=== PATIENT | female | born 1960 | race Caucasian/White ===

== ENCOUNTER → 2017-07-26 | Outpatient (CLI) | payer MEDICAID ==
[~2017-07-26] MED LIST: ASPI-1005 PO; BENA40TA3 PO; CYAN10009 PO; DIGO250T84 PO; DIPH25CA85 PO; FLUO40CA7 PO; FOLI-74 PO; LEVO75TA10 PO; METF500T6 PO; SIMV10TA6 PO; TRAM50TA4 PO; TRAZ-144 PO
== END ==
LOC: SHCH 15:05
PROVIDERS: ATTEND Internal Medicine Cardiovascular Disease
DX: K21.9 Gastro-esophageal reflux disease without esophagitis (principal); I87.2 Venous insufficiency (chronic) (peripheral)
CPT/HCPCS: 93970

== ENCOUNTER 2017-08-20 15:23 | Emergency (ER) | payer MEDICAID ==
[~2017-08-20 15:23] MED LIST changes: -BENA40TA3 PO; +BENA40TA9 PO; -TRAZ-144 PO; +TRAZ-185 PO
== END 2017-08-20 15:50 | disposition home or self-care (01) ==
LOC: EDH 15:23
DX: H10.9 Unspecified conjunctivitis (principal); I10 Essential (primary) hypertension; E07.9 Disorder of thyroid, unspecified; Z88.8 Allergy status to other drugs, medicaments and biological substances

== ENCOUNTER 2019-06-28 10:35 | Inpatient (IN) | payer MEDICAID ==
[~2019-06-28] VITALS: Ht 172.7 cm; Wt 124.6 kg
[~2019-06-28 10:35] MED LIST changes: +CYAN-52 PO; -CYAN10009 PO; +DIGO250T73 PO; -DIGO250T84 PO; +METF-444 PO; -METF500T6 PO; -SIMV10TA6 PO; +SIMV10TA97 PO
[2019-06-28] MEDS ORDERED: SODIUM CHLORIDE 0.9% 1000ML 1,000 ML IV ONE ×3 (10:59→20:36)
[2019-06-28] MEDS ORDERED: ACETAMINOPHEN EXTRA STRENGTH 500 MG TABLET ONE (10:59)
[2019-06-28 11:20] LABS: APPEARANCE,URINE Clear (CLEAR); BASOPHILS % (AUTO) 0.3 % (0.0-5.0); BILIRUBIN,URINE Negative (NEGATIVE); COLOR,URINE Yellow (YELLOW); EOSINOPHILS % (AUTO) 0.1 % (0.0-8.0); GLUCOSE, URINE (UA) Negative (NEGATIVE); HEMATOCRIT 42.1 % (36-48); KETONES,URINE Trace mg/dL (NEGATIVE); LEUKOCYTE ESTERASE ,URINE Moderate (NEGATIVE); LYMPHOCYTES % (AUTO) 30.5 % (21.0-51.0); MEAN CORPUSCULAR HEMOGLOBIN 27.3 pg (27.0-33.0); MEAN CORPUSCULAR VOLUME 82.7 fL (79-99); MONOCYTES % (AUTO) 9.8 % (3.0-13.0); NITRATE,URINE Negative (NEGATIVE); OCCULT BLOOD,URINE Negative (NEGATIVE); PH,URINE 5.5 (5.0-8.0); PLATELET COUNT (AUTO) 205 K/uL (130-400); PROTEIN,URINE Negative (NEGATIVE); RED BLOOD CELL COUNT(AUTO) 5.09 MIL/uL (4.00-5.50); RED CELL DISTRIBUTION WIDTH 14.1 % (11.0-15.5); WHITE BLOOD COUNT (AUTO) 11.3 K/uL (4.8-10.8)
[2019-06-28 11:27] LABS: CREATININE 0.9 mg/dL (0.5-1.5); POTASSIUM 3.9 mmol/L (3.5-5.1)
[2019-06-28] MEDS ORDERED: METHYLPREDNISOLONE SOD SUCC 125MG/2ML VIAL ONE (11:28)
[2019-06-28 11:34] LABS: ALBUMIN 3.8 g/dL (3.5-5.0); BILIRUBIN,TOTAL 0.5 mg/dL (0.2-1.0); TOTAL PROTEIN, SERUM 7.6 g/dL (6.0-8.3)
[2019-06-28] MEDS ORDERED: IPRATROPIUM/ALBUTEROL SULFATE 3 ML SOLUTION IH ONE ×2 (11:47→13:51)
[2019-06-28 12:11] LABS: BACTERIA,URINE Rare /HPF (None Seen); RBC,URINE 0-1 /HPF (0-1); SQUAMOUS EPITHELIAL CELL,UR Few /HPF (0-2)
[2019-06-28] MEDS ORDERED: AZITHROMYCIN 500MG+NS 250ML 250 ML IV ONE (15:17)
[2019-06-28] MEDS ORDERED: CEFTRIAXONE SODIUM 1 GM ONE (15:17)
[2019-06-28] MEDS ORDERED: ACETAMINOPHEN 325 MG TAB PO PRN ×2 (16:30→16:45)
[2019-06-28] MEDS ORDERED: ONDANSETRON HCL 4 MG/2 ML VIAL IV PRN (16:45)
[2019-06-28] MEDS ORDERED: NITROGLYCERIN 0.4 MG SL TAB SL PRN (16:45)
[2019-06-28] MEDS ORDERED: LACTULOSE 20 GM/30 ML UDCUP PO PRN (16:45)
[2019-06-28] MEDS ORDERED: METHYLPREDNISOLONE SOD SUCC 125MG/2ML VIAL IVP SCH ×2 (17:45→19:00)
[2019-06-28] MEDS: IPRATROPIUM/ALBUTEROL SULFATE 3 ML SOLUTION IH SCH ×2 (19:06→23:26)
[2019-06-28] MEDS: BUDESONIDE 0.5 MG/2 ML INH IH SCH (19:17)
[2019-06-28] MEDS ORDERED: FAMOTIDINE/PF 20 MG/2 ML VIAL IV ONE (20:35)
[2019-06-28] MEDS: FAMOTIDINE 20MG TAB 20 MG TAB PO SCH (21:00)
[2019-06-28 22:30] VITALS: BP 154/76
[2019-06-28] MEDS ORDERED: AMLO5TAB9 PO (22:52)
[2019-06-28] MEDS ORDERED: HYDR25TA PO (22:52)
[2019-06-28] MEDS ORDERED: MONT10TA26 PO (22:52)
[2019-06-28] MEDS ORDERED: ATOR40TA69 PO (22:52)
[2019-06-28] MEDS ORDERED: BUPR-47 PO (22:52)
[2019-06-28] MEDS ORDERED: CETI10TA57 PO (22:52)
[2019-06-28] MEDS ORDERED: FLUT16H NASAL (22:55)
[2019-06-28] MEDS: SODIUM CHLORIDE 0.9% 1000ML 1,000 ML IV SCH (22:55)
[2019-06-28] MEDS: GUAIFENESIN-DM 200/20 MG 10 ML PO SCH ×2 (22:55→23:23)
[2019-06-28] MEDS ORDERED: FLUT1DIS3 IH (22:55)
[2019-06-28] MEDS: AZITHROMYCIN 500MG+NS 250ML 250 ML IV SCH (22:55)
[2019-06-29] MEDS: IPRATROPIUM/ALBUTEROL SULFATE 3 ML SOLUTION IH SCH ×6 (01:55→21:29)
[2019-06-29 04:07] VITALS: BP 141/78
[2019-06-29] MEDS: GUAIFENESIN-DM 200/20 MG 10 ML PO SCH ×5 (04:19→20:11)
[2019-06-29 05:27] LABS: BASOPHILS % (AUTO) 0.1 % (0.0-5.0); EOSINOPHILS % (AUTO) 1.5 % (0.0-8.0); HEMATOCRIT 38.2 % (36-48); LYMPHOCYTES % (AUTO) 19.4 % (21.0-51.0); MEAN CORPUSCULAR HEMOGLOBIN 26.6 pg (27.0-33.0); MEAN CORPUSCULAR HGB CONC 31.9 g/dL (32.0-36.0); MEAN CORPUSCULAR VOLUME 83.4 fL (79-99); MONOCYTES % (AUTO) 8.2 % (3.0-13.0); NEUTROPHILS % (AUTO) 70.3 % (40.0-77.0); PLATELET COUNT (AUTO) 185 K/uL (130-400); RED BLOOD CELL COUNT(AUTO) 4.58 MIL/uL (4.00-5.50); RED CELL DISTRIBUTION WIDTH 14.4 % (11.0-15.5); WHITE BLOOD COUNT (AUTO) 10.1 K/uL (4.8-10.8)
[2019-06-29 05:46] LABS: ALBUMIN 3.2 g/dL (3.5-5.0); BILIRUBIN,TOTAL 0.2 mg/dL (0.2-1.0); CREATININE 0.9 mg/dL (0.5-1.5); POTASSIUM 4.7 mmol/L (3.5-5.1); TOTAL PROTEIN, SERUM 6.6 g/dL (6.0-8.3)
[2019-06-29] MEDS: BUDESONIDE 0.5 MG/2 ML INH IH SCH ×2 (06:52→17:35)
[2019-06-29 08:18] VITALS: BP 142/66
[2019-06-29] MEDS: METHYLPREDNISOLONE SOD SUCC 125MG/2ML VIAL IVP SCH (08:19)
[2019-06-29] MEDS: CEFTRIAXONE SODIUM 1 GM IV SCH (08:20)
[2019-06-29] MEDS: FAMOTIDINE 20MG TAB 20 MG TAB PO SCH ×2 (08:20→20:11)
[2019-06-29] MEDS: ENOXAPARIN SODIUM 40 MG/0.4 ML SYRINGE SQ SCH (08:20)
[2019-06-29] MEDS: SODIUM CHLORIDE 0.9% 1000ML 1,000 ML IV SCH (08:28)
[2019-06-29 10:44] VITALS: BP 143/70
[2019-06-29 15:51] VITALS: BP 157/88
[2019-06-29] MEDS: AZITHROMYCIN 500MG+NS 250ML 250 ML IV SCH (15:54)
--- NOTE | 2019-06-29 17:10 | NUR ---
INITIAL Patient lives with adult son, Lenny Bergman, [phone], disabled sister, and grandchildren. Emergency contact is granddaughter, Giovanna Villalobos, [phone]. No home services or DME. 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 Patient is able to complete ADL's independently and drives. PCP is Dr. Johnson at [facility]. Pharmacy is [facility] located in [place]. DCP is home.
[2019-06-29 20:00] VITALS: BP 150/72
[2019-06-30] VITALS (7 sets, daily range): BP systolic 138–161; BP diastolic 59–94
[2019-06-30] MEDS: IPRATROPIUM/ALBUTEROL SULFATE 3 ML SOLUTION IH SCH ×6 (01:11→21:40)
[2019-06-30] MEDS: GUAIFENESIN-DM 200/20 MG 10 ML PO SCH ×6 (03:56→20:42)
[2019-06-30 05:40] LABS: BASOPHILS % (AUTO) 0.1 % (0.0-5.0); HEMATOCRIT 36.2 % (36-48); LYMPHOCYTES % (AUTO) 16.8 % (21.0-51.0); MEAN CORPUSCULAR HEMOGLOBIN 26.7 pg (27.0-33.0); MEAN CORPUSCULAR VOLUME 83.2 fL (79-99); MONOCYTES % (AUTO) 6.9 % (3.0-13.0); NEUTROPHILS % (AUTO) 75.4 % (40.0-77.0); PLATELET COUNT (AUTO) 190 K/uL (130-400); RED BLOOD CELL COUNT(AUTO) 4.35 MIL/uL (4.00-5.50); RED CELL DISTRIBUTION WIDTH 14.2 % (11.0-15.5); WHITE BLOOD COUNT (AUTO) 12.1 K/uL (4.8-10.8)
[2019-06-30] MEDS: BUDESONIDE 0.5 MG/2 ML INH IH SCH ×2 (06:13→18:33)
[2019-06-30 06:19] LABS: ALBUMIN 3.1 g/dL (3.5-5.0); BILIRUBIN,TOTAL 0.3 mg/dL (0.2-1.0); CREATININE 0.7 mg/dL (0.5-1.5); POTASSIUM 4.1 mmol/L (3.5-5.1); TOTAL PROTEIN, SERUM 6.4 g/dL (6.0-8.3)
[2019-06-30] MEDS: METHYLPREDNISOLONE SOD SUCC 125MG/2ML VIAL IVP SCH ×3 (10:36→20:42)
[2019-06-30] MEDS: CEFTRIAXONE SODIUM 1 GM IV SCH (10:36)
[2019-06-30] MEDS: FAMOTIDINE 20MG TAB 20 MG TAB PO SCH ×2 (10:36→20:42)
[2019-06-30] MEDS: ENOXAPARIN SODIUM 40 MG/0.4 ML SYRINGE SQ SCH (10:38)
[2019-06-30] MEDS: AZITHROMYCIN 500MG+NS 250ML 250 ML IV SCH (15:02)
--- NOTE | 2019-06-30 18:17 | NUR ---
CM NOTE MEET PATIENT TODAY IN ROOM. SNF OFFERED TO PATIENT DUE TO HIGH DOSES OF STEROIDS AND NEED FOR IV ANTIBIOTICS. PATIENT NOT WILLING TO GO TO SNF DUE TO RESPONSIBLE FOR HER 6 KIDS AT HOME WELL A SPECIAL NEEDS SISTER. DR. STRINGER MADE AWARE OF PATIENTS DECISION.
[2019-06-30] MEDS: AMLODIPINE BESYLATE 5 MG TAB PO SCH (20:42)
[2019-06-30] MEDS: FLUTICASONE PROPIONATE 50MCG/SPRAY 16 GM BOTTLE EN SCH (20:43)
[2019-07-01] MEDS: GUAIFENESIN-DM 200/20 MG 10 ML PO SCH ×7 (01:21→23:55)
[2019-07-01] MEDS: IPRATROPIUM/ALBUTEROL SULFATE 3 ML SOLUTION IH SCH ×6 (01:24→22:11)
[2019-07-01 03:33] VITALS: BP 142/72
[2019-07-01 05:18] LABS: BILIRUBIN,TOTAL 0.3 mg/dL (0.2-1.0); CREATININE 0.9 mg/dL (0.5-1.5); MAGNESIUM 1.4 mg/dL (1.80-2.40); PHOSPHORUS 2.7 mg/dL (2.5-4.9); POTASSIUM 4.4 mmol/L (3.5-5.1); TOTAL PROTEIN, SERUM 6.3 g/dL (6.0-8.3)
[2019-07-01 05:19] LABS: BASOPHILS % (AUTO) 0.2 % (0.0-5.0); EOSINOPHILS % (AUTO) 0.1 % (0.0-8.0); HEMATOCRIT 37.4 % (36-48); LYMPHOCYTES % (AUTO) 16.7 % (21.0-51.0); MEAN CORPUSCULAR HEMOGLOBIN 27.1 pg (27.0-33.0); MEAN CORPUSCULAR HGB CONC 32.6 g/dL (32.0-36.0); MEAN CORPUSCULAR VOLUME 82.9 fL (79-99); MONOCYTES % (AUTO) 4.2 % (3.0-13.0); NEUTROPHILS % (AUTO) 77.1 % (40.0-77.0); PLATELET COUNT (AUTO) 178 K/uL (130-400); RED BLOOD CELL COUNT(AUTO) 4.51 MIL/uL (4.00-5.50); RED CELL DISTRIBUTION WIDTH 14.1 % (11.0-15.5); WHITE BLOOD COUNT (AUTO) 11.5 K/uL (4.8-10.8)
[2019-07-01] MEDS: METHYLPREDNISOLONE SOD SUCC 125MG/2ML VIAL IVP SCH (05:27)
[2019-07-01] MEDS: LEVOTHYROXINE 75 MCG TABLET PO SCH (05:44)
[2019-07-01] MEDS: BUDESONIDE 0.5 MG/2 ML INH IH SCH ×2 (06:47→18:43)
[2019-07-01 08:27] VITALS: BP 152/81
[2019-07-01] MEDS: CEFTRIAXONE SODIUM 1 GM IV SCH (09:30)
[2019-07-01] MEDS: CETIRIZINE HCL 5 MG TABLET PO SCH (09:32)
[2019-07-01] MEDS: FAMOTIDINE 20MG TAB 20 MG TAB PO SCH ×2 (09:32→20:33)
[2019-07-01] MEDS: HYDROCHLOROTHIAZIDE 25 MG TABLET PO SCH (09:33)
[2019-07-01] MEDS: MONTELUKAST SODIUM 10 MG TAB PO SCH (09:33)
[2019-07-01] MEDS: BUPROPION HCL 150 MG TABLET.SA PO SCH (09:33)
[2019-07-01] MEDS: ATORVASTATIN CALCIUM 40 MG TABLET PO SCH (09:33)
[2019-07-01] MEDS: ENOXAPARIN SODIUM 40 MG/0.4 ML SYRINGE SQ SCH (09:47)
[2019-07-01] MEDS: FLUTICASONE PROPIONATE 50MCG/SPRAY 16 GM BOTTLE EN SCH ×2 (09:47→20:35)
[2019-07-01 11:30] VITALS: BP 146/75
[2019-07-01] MEDS ORDERED: DEXTROSE 50%-WATER 50 ML DISP.SYRIN IV PRN (14:00)
[2019-07-01] MEDS ORDERED: GLUCAGON 1MG KIT 1 MG ML IM PRN (14:00)
[2019-07-01] MEDS ORDERED: DIGOXIN 250 MCG TABLET PO ONE (14:20)
[2019-07-01 14:29] LABS: HEMOGLOBIN A1C 6.6 % (4.0-6.0)
[2019-07-01] MEDS: DIGOXIN 250 MCG TABLET PO SCH (15:55)
--- NOTE | 2019-07-01 16:00 | NUR ---
DR. Ankush MILES OF BS OF [address] [place] [address] IV HAS BEEN D/C CONTINUE TO MONITOR SHOULD BE MORE CONTROLLED IN AM.
[2019-07-01] MEDS: MEROPENEM 1 GM VIAL IVP SCH ×2 (16:30→23:55)
[2019-07-01 16:31] VITALS: BP 158/81
[2019-07-01] MEDS: INSULIN HUMULIN R 100 UNIT/ML 3ML SQ SCH ×2 (16:51→20:37)
[2019-07-01 19:40] VITALS: BP 153/72
[2019-07-01] MEDS: AMLODIPINE BESYLATE 5 MG TAB PO SCH (20:33)
[2019-07-01] MEDS: INSULIN GLARGINE 100 UNITS/ML 10 ML VIAL SQ SCH (20:38)
[2019-07-01] MEDS ORDERED: MAGNESIUM 2GM PREMIX 50ML 50 ML IV SCH (21:00)
[2019-07-01 23:37] VITALS: BP 148/83
[2019-07-02] MEDS: IPRATROPIUM/ALBUTEROL SULFATE 3 ML SOLUTION IH SCH ×6 (01:35→21:58)
[2019-07-02 03:32] VITALS: BP 139/70
[2019-07-02 05:55] LABS: BASOPHILS % (AUTO) 0.4 % (0.0-5.0); HEMATOCRIT 36.2 % (36-48); LYMPHOCYTES % (AUTO) 21.2 % (21.0-51.0); MEAN CORPUSCULAR HEMOGLOBIN 26.7 pg (27.0-33.0); MEAN CORPUSCULAR HGB CONC 32.3 g/dL (32.0-36.0); MEAN CORPUSCULAR VOLUME 82.6 fL (79-99); MONOCYTES % (AUTO) 10.1 % (3.0-13.0); NUCLEATED RED BLOOD CELLS 0.2 % (0.0-0.19); PLATELET COUNT (AUTO) 208 K/uL (130-400); RED BLOOD CELL COUNT(AUTO) 4.38 MIL/uL (4.00-5.50); RED CELL DISTRIBUTION WIDTH 13.9 % (11.0-15.5); WHITE BLOOD COUNT (AUTO) 11.1 K/uL (4.8-10.8)
[2019-07-02 06:13] LABS: ALBUMIN 2.9 g/dL (3.5-5.0); BILIRUBIN,TOTAL 0.2 mg/dL (0.2-1.0); CREATININE 0.9 mg/dL (0.5-1.5); MAGNESIUM 2.9 mg/dL (1.80-2.40); POTASSIUM 4.4 mmol/L (3.5-5.1); TOTAL PROTEIN, SERUM 6.4 g/dL (6.0-8.3)
[2019-07-02] MEDS: GUAIFENESIN-DM 200/20 MG 10 ML PO SCH ×5 (06:40→20:56)
[2019-07-02] MEDS: LEVOTHYROXINE 75 MCG TABLET PO SCH (06:41)
[2019-07-02] MEDS: INSULIN GLARGINE 100 UNITS/ML 10 ML VIAL SQ SCH ×2 (06:47→21:00)
[2019-07-02] MEDS: INSULIN HUMULIN R 100 UNIT/ML 3ML SQ SCH ×4 (06:48→20:59)
[2019-07-02] MEDS: BUDESONIDE 0.5 MG/2 ML INH IH SCH ×2 (07:04→18:21)
--- NOTE | 2019-07-02 08:00 | NUR ---
NOTE AAOX3. DENIES PAIN OR DISCOMFORT. BBS SLIGHT WHEEZING TO UPPER LOBES. COARSENESS THROUGHOUT LOWER LOBES. SHE IS ON ROOM AIR BUT HAS HAD PRODUCTIVE COUGH TODAY AND LAST NIGHT. DROPLET ISOLATION FOR PNEUMONIA AND RESPIRATORY PCR POSITIVE FOR COMMON COLD. HAS BEEN AFEBRILE. CONTINUES WITH NEB TREATMENTS AND STEROIDS WHICH HAVE BEEN CHANGED TO PO.
[2019-07-02] MEDS: FLUTICASONE PROPIONATE 50MCG/SPRAY 16 GM BOTTLE EN SCH ×2 (09:00→21:01)
[2019-07-02] MEDS ORDERED: PREDNISONE 20 MG TABLET PO SCH (09:00)
[2019-07-02 09:05] VITALS: BP 173/80
[2019-07-02] MEDS: ATORVASTATIN CALCIUM 40 MG TABLET PO SCH (09:56)
[2019-07-02] MEDS: FAMOTIDINE 20MG TAB 20 MG TAB PO SCH ×2 (09:56→20:56)
[2019-07-02] MEDS: CETIRIZINE HCL 5 MG TABLET PO SCH (09:56)
[2019-07-02] MEDS: HYDROCHLOROTHIAZIDE 25 MG TABLET PO SCH (09:56)
[2019-07-02] MEDS: BUPROPION HCL 150 MG TABLET.SA PO SCH (09:56)
[2019-07-02] MEDS: MEROPENEM 1 GM VIAL IVP SCH ×3 (09:57→20:56)
[2019-07-02] MEDS: MONTELUKAST SODIUM 10 MG TAB PO SCH (09:57)
[2019-07-02] MEDS: ENOXAPARIN SODIUM 40 MG/0.4 ML SYRINGE SQ SCH (09:58)
[2019-07-02 11:50] VITALS: BP 165/92
[2019-07-02] MEDS: DIGOXIN 250 MCG TABLET PO SCH (15:31)
[2019-07-02 16:13] VITALS: BP 146/74
[2019-07-02 20:06] VITALS: BP 169/90
[2019-07-02] MEDS: METHYLPREDNISOLONE SOD SUCC 125MG/2ML VIAL IVP SCH (20:56)
[2019-07-02] MEDS: AMLODIPINE BESYLATE 5 MG TAB PO SCH (20:56)
[2019-07-02 23:18] VITALS: BP 169/96
[2019-07-03] MEDS: GUAIFENESIN-DM 200/20 MG 10 ML PO SCH ×6 (01:11→21:50)
[2019-07-03] MEDS: IPRATROPIUM/ALBUTEROL SULFATE 3 ML SOLUTION IH SCH ×6 (02:24→21:20)
[2019-07-03] MEDS: MEROPENEM 1 GM VIAL IVP SCH (04:54)
[2019-07-03] MEDS: LEVOTHYROXINE 75 MCG TABLET PO SCH (04:54)
[2019-07-03] MEDS: HYDRALAZINE HCL 20 MG/ML VIAL IV PRN (04:54)
[2019-07-03] MEDS: INSULIN HUMULIN R 100 UNIT/ML 3ML SQ SCH ×5 (05:16→21:51)
[2019-07-03 06:10] LABS: BASOPHILS % (AUTO) 0.5 % (0.0-5.0); EOSINOPHILS % (AUTO) 0.1 % (0.0-8.0); HEMATOCRIT 40.4 % (36-48); LYMPHOCYTES % (AUTO) 20.8 % (21.0-51.0); MEAN CORPUSCULAR HEMOGLOBIN 27.5 pg (27.0-33.0); MEAN CORPUSCULAR HGB CONC 33.2 g/dL (32.0-36.0); MONOCYTES % (AUTO) 5.2 % (3.0-13.0); NEUTROPHILS % (AUTO) 67.7 % (40.0-77.0); NUCLEATED RED BLOOD CELLS 0.2 % (0.0-0.19); PLATELET COUNT (AUTO) 252 K/uL (130-400); RED BLOOD CELL COUNT(AUTO) 4.87 MIL/uL (4.00-5.50); RED CELL DISTRIBUTION WIDTH 13.7 % (11.0-15.5); WHITE BLOOD COUNT (AUTO) 10.8 K/uL (4.8-10.8)
[2019-07-03 06:49] LABS: ALBUMIN 3.2 g/dL (3.5-5.0); BILIRUBIN,TOTAL 0.4 mg/dL (0.2-1.0); CREATININE 0.9 mg/dL (0.5-1.5); POTASSIUM 4.3 mmol/L (3.5-5.1); TOTAL PROTEIN, SERUM 7.8 g/dL (6.0-8.3)
[2019-07-03] MEDS: BUDESONIDE 0.5 MG/2 ML INH IH SCH ×2 (06:53→18:16)
[2019-07-03] MEDS: INSULIN GLARGINE 100 UNITS/ML 10 ML VIAL SQ SCH ×2 (07:24→21:52)
[2019-07-03 08:00] VITALS: BP 124/73
[2019-07-03] MEDS: FLUTICASONE PROPIONATE 50MCG/SPRAY 16 GM BOTTLE EN SCH ×2 (09:00→21:49)
[2019-07-03] MEDS: BUPROPION HCL 150 MG TABLET.SA PO SCH (09:53)
[2019-07-03] MEDS: ENOXAPARIN SODIUM 40 MG/0.4 ML SYRINGE SQ SCH (09:54)
[2019-07-03] MEDS: MONTELUKAST SODIUM 10 MG TAB PO SCH (09:54)
[2019-07-03] MEDS: METHYLPREDNISOLONE SOD SUCC 125MG/2ML VIAL IVP SCH ×2 (09:54→21:50)
[2019-07-03] MEDS: CETIRIZINE HCL 5 MG TABLET PO SCH (09:55)
[2019-07-03] MEDS: FAMOTIDINE 20MG TAB 20 MG TAB PO SCH ×2 (09:55→21:50)
[2019-07-03] MEDS: HYDROCHLOROTHIAZIDE 25 MG TABLET PO SCH (09:55)
[2019-07-03 11:55] VITALS: BP 158/76
--- NOTE | 2019-07-03 12:00 | NUR ---
CM NOTE REFERRAL FOR SNF FOR IV ANTIBIOTICS/IV STEROIDS AND NEBULIZER TREATMENTS. PER PATIENT, DOES NOT WANT TO GO TO SNF D/T TAKING CARE OF HER YOUNG CHILDREN AT HOME AND HER MENTALLY CHALLENGED SISTER. [facility] OFFERED, PER PATIENT, OPEN TO AIU. PER DR. VÁZQUEZ, MERREM IV CHANGED TO LEVAQUIN IV QD, PER MD, WILL MOST LIKELY CONVERT TO PO ABT AND THE PATIENT WILL NOT REQUIRE SNF OR [facility] FOR ANTIBIOTICS. PATIENT AND PRIMARY NURSE, ZABRINA RAMEY, MADE AWARE OF CONVERSATION BETWEEN AND I.
[2019-07-03] MEDS: DIGOXIN 250 MCG TABLET PO SCH (15:45)
[2019-07-03] MEDS: LEVOFLOXACIN 750 MG/D5W 150 ML 150 ML IV SCH (15:45)
[2019-07-03 16:00] VITALS: BP 182/100
[2019-07-03 20:00] VITALS: BP 159/81
[2019-07-03] MEDS: AMLODIPINE BESYLATE 5 MG TAB PO SCH (21:50)
[2019-07-03] MEDS: ATORVASTATIN CALCIUM 40 MG TABLET PO SCH (21:50)
[2019-07-04] VITALS: BP 168/101
[2019-07-04] MEDS: GUAIFENESIN-DM 200/20 MG 10 ML PO SCH ×6 (00:46→20:52)
[2019-07-04] MEDS: IPRATROPIUM/ALBUTEROL SULFATE 3 ML SOLUTION IH SCH ×6 (01:08→21:35)
[2019-07-04 04:44] VITALS: BP 158/71
[2019-07-04 05:54] LABS: BASOPHILS % (AUTO) 0.4 % (0.0-5.0); HEMATOCRIT 41.7 % (36-48); LYMPHOCYTES % (AUTO) 17.9 % (21.0-51.0); MEAN CORPUSCULAR HEMOGLOBIN 26.6 pg (27.0-33.0); MEAN CORPUSCULAR HGB CONC 32.4 g/dL (32.0-36.0); MEAN CORPUSCULAR VOLUME 82.1 fL (79-99); MONOCYTES % (AUTO) 5.7 % (3.0-13.0); NEUTROPHILS % (AUTO) 69.8 % (40.0-77.0); PLATELET COUNT (AUTO) 268 K/uL (130-400); RED BLOOD CELL COUNT(AUTO) 5.08 MIL/uL (4.00-5.50); RED CELL DISTRIBUTION WIDTH 13.8 % (11.0-15.5); WHITE BLOOD COUNT (AUTO) 14.1 K/uL (4.8-10.8)
[2019-07-04] MEDS: BUDESONIDE 0.5 MG/2 ML INH IH SCH ×2 (06:16→18:51)
[2019-07-04] MEDS: INSULIN HUMULIN R 100 UNIT/ML 3ML SQ SCH ×6 (06:36→18:35)
[2019-07-04] MEDS: LEVOTHYROXINE 75 MCG TABLET PO SCH (06:38)
[2019-07-04] MEDS: INSULIN GLARGINE 100 UNITS/ML 10 ML VIAL SQ SCH ×3 (06:38→20:56)
[2019-07-04 06:41] LABS: ALBUMIN 3.2 g/dL (3.5-5.0); BILIRUBIN,TOTAL 0.5 mg/dL (0.2-1.0); POTASSIUM 4.3 mmol/L (3.5-5.1); TOTAL PROTEIN, SERUM 6.7 g/dL (6.0-8.3)
[2019-07-04 08:00] VITALS: BP 150/73
[2019-07-04] MEDS: FLUTICASONE PROPIONATE 50MCG/SPRAY 16 GM BOTTLE EN SCH ×2 (09:00→20:52)
[2019-07-04] MEDS: METHYLPREDNISOLONE SOD SUCC 125MG/2ML VIAL IVP SCH ×2 (10:06→20:55)
[2019-07-04] MEDS: FAMOTIDINE 20MG TAB 20 MG TAB PO SCH ×2 (10:08→20:55)
[2019-07-04] MEDS: CETIRIZINE HCL 5 MG TABLET PO SCH (10:08)
[2019-07-04] MEDS: HYDROCHLOROTHIAZIDE 25 MG TABLET PO SCH (10:09)
[2019-07-04] MEDS: BUPROPION HCL 150 MG TABLET.SA PO SCH (10:15)
[2019-07-04] MEDS: MONTELUKAST SODIUM 10 MG TAB PO SCH (10:15)
[2019-07-04] MEDS: ENOXAPARIN SODIUM 40 MG/0.4 ML SYRINGE SQ SCH (10:17)
[2019-07-04 12:00] VITALS: BP 119/77
[2019-07-04] MEDS: LEVOFLOXACIN 750 MG/D5W 150 ML 150 ML IV SCH (13:05)
--- NOTE | 2019-07-04 14:00 | NUR ---
Nutrition Education RD provided Diabetes and Nutrition education for weight loss. RD provided reference materials and handouts and answered all of Pt's questions. Pt verbalized understanding. RD to continue to monitor. Addendum: 07/04/19 at [address] Amended: Links added.
--- NOTE | 2019-07-04 14:11 | NUR ---
RD SCREEN - LOS X 6 Pt admitted for Pneumonia. Pt Hx of DM, HTN, Obesity Class III (BMI 41.8). Recommend to continue Heart Healthy, 60gm CC diet order, double portion non-starchy vegetables. CRUZ provided Diabetes and Nutrition education for weight loss. RD to continue to monitor. Please notify as additional nutrition concerns arise. Thank you. Addendum: 07/04/19 at [address] Amended: Links added.
[2019-07-04 16:00] VITALS: BP 156/77
[2019-07-04] MEDS ORDERED: PHARMACY COMMUNICATION MISC SCH (16:45)
[2019-07-04] MEDS: DIGOXIN 250 MCG TABLET PO SCH (18:25)
[2019-07-04 20:00] VITALS: BP 160/88
[2019-07-04] MEDS: AMLODIPINE BESYLATE 5 MG TAB PO SCH (20:55)
[2019-07-04] MEDS: ATORVASTATIN CALCIUM 40 MG TABLET PO SCH (20:55)
[2019-07-05] VITALS: BP 171/80
[2019-07-05] MEDS: GUAIFENESIN-DM 200/20 MG 10 ML PO SCH ×6 (00:27→20:20)
[2019-07-05] MEDS: IPRATROPIUM/ALBUTEROL SULFATE 3 ML SOLUTION IH SCH ×6 (01:21→21:14)
[2019-07-05 04:00] VITALS: BP 157/72
[2019-07-05] MEDS: BUDESONIDE 0.5 MG/2 ML INH IH SCH ×2 (06:38→19:29)
[2019-07-05] MEDS: LEVOTHYROXINE 75 MCG TABLET PO SCH (06:40)
[2019-07-05] MEDS: INSULIN GLARGINE 100 UNITS/ML 10 ML VIAL SQ SCH ×3 (06:41→20:18)
[2019-07-05] MEDS: INSULIN HUMULIN R 100 UNIT/ML 3ML SQ SCH ×7 (07:30→20:17)
[2019-07-05] MEDS ORDERED: INSULIN HUMULIN R 100 UNIT/ML 3ML SQ SCH (07:30)
[2019-07-05 08:20] VITALS: BP 172/83
--- NOTE | 2019-07-05 08:43 | NUR ---
RD UPDATE RD notification for Diabetes nutrition education received. DM education previously provided 07/04/19. Please see Teaching record/Nutrition Education note.
[2019-07-05] MEDS: METHYLPREDNISOLONE SOD SUCC 125MG/2ML VIAL IVP SCH (09:06)
[2019-07-05] MEDS: BUPROPION HCL 150 MG TABLET.SA PO SCH (09:06)
[2019-07-05] MEDS: CETIRIZINE HCL 5 MG TABLET PO SCH (09:06)
[2019-07-05] MEDS: MONTELUKAST SODIUM 10 MG TAB PO SCH (09:06)
[2019-07-05] MEDS: HYDROCHLOROTHIAZIDE 25 MG TABLET PO SCH (09:06)
[2019-07-05] MEDS: FAMOTIDINE 20MG TAB 20 MG TAB PO SCH ×2 (09:06→20:21)
[2019-07-05] MEDS: FLUTICASONE PROPIONATE 50MCG/SPRAY 16 GM BOTTLE EN SCH ×2 (09:07→20:20)
[2019-07-05] MEDS: ENOXAPARIN SODIUM 40 MG/0.4 ML SYRINGE SQ SCH (09:08)
[2019-07-05 11:27] VITALS: BP 143/77
--- NOTE | 2019-07-05 12:00 | NUR ---
PATIENT INSTRUCTED ON GIVEN HERSELF INSULIN INJECTION , PATIENT WAS ABLE TO DRAW UP THE CORRECT AMOUNT OF INSULIN AND INJECT HERSELF CORRECTLY,. INJECTION SITE REVIEWED AND EDUCATION HANDOUT WAS REVIEWED AND GIVEN TO PATIENT WILL CONTINUE TO MONITOR .
[2019-07-05] MEDS: LEVOFLOXACIN 750 MG/D5W 150 ML 150 ML IV SCH (12:52)
[2019-07-05 16:25] VITALS: BP 163/74
[2019-07-05] MEDS: DIGOXIN 250 MCG TABLET PO SCH (16:42)
[2019-07-05 20:00] VITALS: BP 166/79
[2019-07-05] MEDS: AMLODIPINE BESYLATE 5 MG TAB PO SCH (20:21)
[2019-07-05] MEDS: ATORVASTATIN CALCIUM 40 MG TABLET PO SCH (20:21)
[2019-07-06] VITALS: BP 145/85
[2019-07-06] MEDS: GUAIFENESIN-DM 200/20 MG 10 ML PO SCH ×6 (00:58→21:52)
[2019-07-06] MEDS: IPRATROPIUM/ALBUTEROL SULFATE 3 ML SOLUTION IH SCH ×6 (02:46→22:17)
[2019-07-06 04:00] VITALS: BP 176/76
[2019-07-06] MEDS: HYDRALAZINE HCL 20 MG/ML VIAL IV PRN (04:26)
[2019-07-06] MEDS: INSULIN HUMULIN R 100 UNIT/ML 3ML SQ SCH ×7 (05:45→22:00)
[2019-07-06] MEDS: BUDESONIDE 0.5 MG/2 ML INH IH SCH ×2 (06:33→18:59)
[2019-07-06] MEDS: LEVOTHYROXINE 75 MCG TABLET PO SCH (06:43)
[2019-07-06] MEDS: INSULIN GLARGINE 100 UNITS/ML 10 ML VIAL SQ SCH ×2 (06:45→22:01)
[2019-07-06 08:30] VITALS: BP 135/72
[2019-07-06] MEDS: FAMOTIDINE 20MG TAB 20 MG TAB PO SCH ×2 (09:00→21:00)
--- NOTE | 2019-07-06 09:23 | NUR ---
RD UPDATE Diabetes Nutrition Education reinforcement provided 07/06/19. Pt questions answered. RD reviewed all Diabetes nutrition education. Please notify as additional nutrition concerns arise.
[2019-07-06] MEDS: PREDNISONE 20 MG TABLET PO SCH (10:01)
[2019-07-06] MEDS: MONTELUKAST SODIUM 10 MG TAB PO SCH (10:01)
[2019-07-06] MEDS: BUPROPION HCL 150 MG TABLET.SA PO SCH (10:01)
[2019-07-06] MEDS: CETIRIZINE HCL 5 MG TABLET PO SCH (10:01)
[2019-07-06] MEDS: HYDROCHLOROTHIAZIDE 25 MG TABLET PO SCH (10:01)
[2019-07-06] MEDS: ENOXAPARIN SODIUM 40 MG/0.4 ML SYRINGE SQ SCH (10:02)
[2019-07-06] MEDS: FLUTICASONE PROPIONATE 50MCG/SPRAY 16 GM BOTTLE EN SCH ×2 (10:02→21:52)
[2019-07-06 12:00] VITALS: BP 145/76
--- NOTE | 2019-07-06 12:05 | NUR ---
SECOND DAY PATIENT WAS INSTRUCT ON GIVEN HERSELF INSULIN INJECTION, PATIENT WAS ABLE TO DRAW UP THE CORRECT AMOUNT OF INSULIN AND INJECT HERSELF CORRECTLY. INJECTION SITE REVIEWED AND EDUCATION REENFORCED
[2019-07-06] MEDS: LEVOFLOXACIN 750 MG/D5W 150 ML 150 ML IV SCH (13:53)
[2019-07-06 16:10] VITALS: BP 150/81
[2019-07-06] MEDS: DIGOXIN 250 MCG TABLET PO SCH (16:49)
[2019-07-06 20:00] VITALS: BP 132/60
[2019-07-06] MEDS: ATORVASTATIN CALCIUM 40 MG TABLET PO SCH (21:53)
[2019-07-06] MEDS: AMLODIPINE BESYLATE 5 MG TAB PO SCH (21:53)
[2019-07-07] VITALS: BP 122/66
[2019-07-07] MEDS: GUAIFENESIN-DM 200/20 MG 10 ML PO SCH ×4 (01:57→16:36)
[2019-07-07] MEDS: IPRATROPIUM/ALBUTEROL SULFATE 3 ML SOLUTION IH SCH ×4 (02:01→13:25)
[2019-07-07 04:00] VITALS: BP 131/82
--- NOTE | 2019-07-07 04:55 | NUR ---
Patient noted to be coughing out thick bloody sputum,ENVIRONMENTAL RESEARCH SCIENTIST Bob notified,received order to send sputum for culture and Chest Xray.Patient instructed need to collect sputum specimen ,she said she will later today.
[2019-07-07 05:06] LABS: BASOPHILS % (AUTO) 0.4 % (0.0-5.0); EOSINOPHILS % (AUTO) 0.2 % (0.0-8.0); HEMATOCRIT 44.1 % (36-48); LYMPHOCYTES % (AUTO) 24.4 % (21.0-51.0); MEAN CORPUSCULAR HEMOGLOBIN 26.7 pg (27.0-33.0); MEAN CORPUSCULAR VOLUME 83.5 fL (79-99); MONOCYTES % (AUTO) 10.6 % (3.0-13.0); NEUTROPHILS % (AUTO) 59.7 % (40.0-77.0); PLATELET COUNT (AUTO) 229 K/uL (130-400); RED BLOOD CELL COUNT(AUTO) 5.28 MIL/uL (4.00-5.50); RED CELL DISTRIBUTION WIDTH 14.2 % (11.0-15.5); WHITE BLOOD COUNT (AUTO) 15.8 K/uL (4.8-10.8)
[2019-07-07 05:19] LABS: CREATININE 0.9 mg/dL (0.5-1.5); POTASSIUM 4.6 mmol/L (3.5-5.1)
[2019-07-07] MEDS: LEVOTHYROXINE 75 MCG TABLET PO SCH (05:34)
[2019-07-07] MEDS: INSULIN HUMULIN R 100 UNIT/ML 3ML SQ SCH ×5 (06:03→16:38)
[2019-07-07] MEDS: INSULIN GLARGINE 100 UNITS/ML 10 ML VIAL SQ SCH (06:50)
[2019-07-07] MEDS: BUDESONIDE 0.5 MG/2 ML INH IH SCH (07:24)
[2019-07-07 08:00] VITALS: BP 132/65
[2019-07-07] MEDS: FAMOTIDINE 20MG TAB 20 MG TAB PO SCH (09:00)
[2019-07-07] MEDS: ENOXAPARIN SODIUM 40 MG/0.4 ML SYRINGE SQ SCH (09:16)
[2019-07-07] MEDS: CETIRIZINE HCL 5 MG TABLET PO SCH (09:16)
[2019-07-07] MEDS: MONTELUKAST SODIUM 10 MG TAB PO SCH (09:16)
[2019-07-07] MEDS: HYDROCHLOROTHIAZIDE 25 MG TABLET PO SCH (09:16)
[2019-07-07] MEDS: PREDNISONE 20 MG TABLET PO SCH (09:17)
[2019-07-07] MEDS: FLUTICASONE PROPIONATE 50MCG/SPRAY 16 GM BOTTLE EN SCH (09:18)
[2019-07-07] MEDS: BUPROPION HCL 150 MG TABLET.SA PO SCH (09:21)
[2019-07-07 12:00] VITALS: BP 145/74
[2019-07-07] MEDS ORDERED: LEVO750T21 PO (14:40)
[2019-07-07] MEDS ORDERED: INSU100V3 SQ (14:40)
[2019-07-07] MEDS ORDERED: BUDE180H IH (14:40)
[2019-07-07] MEDS ORDERED: INSLAN SQ (14:40)
[2019-07-07] MEDS ORDERED: FAMO20TA8 PO (14:40)
[2019-07-07] MEDS ORDERED: ALBU8.5H8 IH (14:40)
[2019-07-07 16:07] VITALS: BP 137/96
[2019-07-07] MEDS: DIGOXIN 250 MCG TABLET PO SCH (16:37)
[2019-07-07] MEDS: LEVOFLOXACIN 750 MG/D5W 150 ML 150 ML IV SCH (16:37)
== END 2019-07-07 19:18 | disposition home or self-care (01) | DRG 137 ==
LOC: EDH 10:35 → EDHIP 10:36 → 3AH 21:34
PROVIDERS: ADMIT Family Medicine; ATTEND Family Medicine
DX: J15.6 Pneumonia due to other Gram-negative bacteria (principal); J96.01 Acute respiratory failure with hypoxia; I47.1 Supraventricular tachycardia; J45.901 Unspecified asthma with (acute) exacerbation; K59.00 Constipation, unspecified; E11.65 Type 2 diabetes mellitus with hyperglycemia; J12.3 Human metapneumovirus pneumonia; E66.01 Morbid (severe) obesity due to excess calories; E78.5 Hyperlipidemia, unspecified; G47.00 Insomnia, unspecified; I10 Essential (primary) hypertension; J42 Unspecified chronic bronchitis; E03.9 Hypothyroidism, unspecified; T38.0X5A Adverse effect of glucocorticoids and synthetic analogues, initial encounter; Z68.41 Body mass index [BMI] 40.0-44.9, adult; Z90.710 Acquired absence of both cervix and uterus; Z79.4 Long term (current) use of insulin; Z79.51 Long term (current) use of inhaled steroids; Y92.89 Other specified places as the place of occurrence of the external cause; Z88.8 Allergy status to other drugs, medicaments and biological substances; Z82.5 Family history of asthma and other chronic lower respiratory diseases
CPT/HCPCS: 36415; 71045; 71046; 71250; 80048; 80053; 81001; 82948; 83036; 83605; 83735; 84100; 84145; 85025; 87040; 87071; 87077; 87186; 87205; 87486; 87581; 87633; 87798; 87804; 93005; 94640; 94664; 94667; 94668; 94760; 99291; G0378; J0360; J0456; J0696; J1650; J1815; J1956; J2185; J2930; J3475; J3490; J7030; J7070

== ENCOUNTER 2019-12-17 19:53 | Inpatient (IN) | payer MEDICAID ==
[~2019-12-17] VITALS: Ht 172.7 cm; Wt 122.5 kg
[~2019-12-17 19:53] MED LIST changes: +ALBU8.5H8 IH; +AMLO5TAB9 PO; -ASPI-1005 PO; +ATOR40TA69 PO; +BUDE180H IH; +BUPR-47 PO; +CETI10TA57 PO; -CYAN-52 PO; -DIPH25CA85 PO; +FAMO20TA8 PO; -FLUO40CA7 PO; +FLUT16H NASAL; -FOLI-74 PO; +HYDR25TA PO; +INSLAN SQ; +INSU100V3 SQ; +LEVO750T21 PO; -METF-444 PO; +MONT10TA26 PO; -SIMV10TA97 PO; -TRAM50TA4 PO; -TRAZ-185 PO
[2019-12-17] MEDS ORDERED: ACETAMINOPHEN 325 MG TAB ONE (20:26)
[2019-12-17 20:33] LABS: BASOPHILS % (AUTO) 0.3 % (0.0-5.0); EOSINOPHILS % (AUTO) 0.1 % (0.0-8.0); HEMATOCRIT 36.4 % (36-48); LYMPHOCYTES % (AUTO) 12.1 % (21.0-51.0); MEAN CORPUSCULAR HEMOGLOBIN 27.4 pg (27.0-33.0); MEAN CORPUSCULAR HGB CONC 33.2 g/dL (32.0-36.0); MEAN CORPUSCULAR VOLUME 82.5 fL (79-99); MONOCYTES % (AUTO) 11.3 % (3.0-13.0); NEUTROPHILS % (AUTO) 75.3 % (40.0-77.0); PLATELET COUNT (AUTO) 256 K/uL (130-400); RED BLOOD CELL COUNT(AUTO) 4.41 MIL/uL (4.00-5.50); RED CELL DISTRIBUTION WIDTH 13.4 % (11.0-15.5); WHITE BLOOD COUNT (AUTO) 14.9 K/uL (4.8-10.8)
[2019-12-17 20:42] LABS: CARBON DIOXIDE 31 mmol/L (21-32); CHLORIDE 96 mmol/L (101-111); CREATININE 0.9 mg/dL (0.5-1.5); GLOMERULAR FILTR. RATE CALC 68 mL/min (>60); GLUCOSE,RANDOM 126 mg/dL (70-105); POTASSIUM 3.7 mmol/L (3.5-5.1); SODIUM SERUM 130 mmol/L (136-145); UREA NITROGEN, BLOOD 11 mg/dL (7-18)
[2019-12-17 20:46] LABS: INR 1.11 (0.85-1.15); PROTHROMBIN TIME 11.9 SEC (9.6-11.6)
[2019-12-17 21:02] LABS: ALANINE AMINOTRANSFERASE 9 U/L (12-78); ALBUMIN 2.8 g/dL (3.5-5.0); ASPARTATE AMINOTRANSFERASE 11 U/L (10-37); BILIRUBIN,TOTAL 0.6 mg/dL (0.2-1.0); CREATINE KINASE, TOTAL 101 U/L (21-232); MYOGLOBIN 141 ng/mL (10-92); TROPONIN I < 0.04 ng/mL (0.00-0.06)
[2019-12-17] MEDS ORDERED: ONDANSETRON HCL 4 MG/2 ML VIAL ONE (21:22)
[2019-12-17] MEDS ORDERED: MORPHINE SULFATE 4 MG/1ML SYG ONE (21:22)
[2019-12-17] MEDS ORDERED: ZOSYN 3.375GM+NS 50ML 50 ML IV ONE (22:26)
[2019-12-17] MEDS ORDERED: LIDOCAINE 1%-EPI 1:100,000 20 ML VIAL IJ ONE (22:31)
[2019-12-17] MEDS ORDERED: ONDANSETRON HCL 4 MG/2 ML VIAL IV PRN (22:45)
[2019-12-17] MEDS ORDERED: VANCOMYCIN PROTOCOL PER PHARMACY IV PRN (22:45)
[2019-12-17] MEDS ORDERED: MAG HYDROX/AL HYDROX/SIMETH 30 ML, LIDOCAINE HCL 2% VISCOUS 30 ML, DIPHENHYDRAMINE HCL ... PO PRN ×3 (22:45)
[2019-12-17] MEDS: CEFEPIME HCL 2 GM VIAL IVP SCH (22:45)
[2019-12-17] MEDS ORDERED: GUAIFENESIN-DM 200/20 MG 10 ML PO PRN (22:45)
[2019-12-17] MEDS ORDERED: DiphenhydrAMINE HCL 50 MG/ML VIAL IV PRN (22:45)
[2019-12-17] MEDS: METRONIDAZOLE 500MG/100ML BAG 100 ML IV SCH (22:45)
[2019-12-17] MEDS ORDERED: ZOLPIDEM TARTRATE 5 MG TAB PO PRN (22:45)
[2019-12-17] MEDS ORDERED: LACTULOSE 20 GM/30 ML UDCUP PO PRN (22:45)
[2019-12-17] MEDS ORDERED: DIPHENHYDRAMINE HCL 25 MG CAPSULE PO PRN (22:45)
[2019-12-17] MEDS ORDERED: MAG HYDROX/AL HYDROX/SIMETH ES 30 ML SUSP UDCUP PO PRN (22:45)
[2019-12-17] MEDS ORDERED: ACETAMINOPHEN 325 MG TAB PO PRN (22:45)
[2019-12-17] MEDS ORDERED: NITROGLYCERIN 0.4 MG SL TAB SL PRN (22:45)
[2019-12-17] MEDS ORDERED: LIDOCAINE HCL 2% VISCOUS 30 ML, MAG HYDROX/AL HYDROX/SIMETH 30 ML, BELLADONNA-PHENOBARB... PO PRN ×3 (22:45)
[2019-12-17] MEDS ORDERED: METRONIDAZOLE 500MG/100ML BAG 100 ML ONE (23:31)
[2019-12-17] MEDS ORDERED: CEFEPIME HCL 2 GM VIAL ONE (23:37)
[2019-12-17 23:58] LABS: ALBUMIN 2.6 g/dL (3.5-5.0); BILIRUBIN,TOTAL 0.6 mg/dL (0.2-1.0); CREATININE 0.9 mg/dL (0.5-1.5); POTASSIUM 3.6 mmol/L (3.5-5.1); TOTAL PROTEIN, SERUM 6.3 g/dL (6.0-8.3)
[2019-12-18] VITALS (7 sets, daily range): BP systolic 102–152; BP diastolic 55–86
[2019-12-18 00:41] LABS: APPEARANCE,URINE Cloudy (CLEAR); BILIRUBIN,URINE Negative (NEGATIVE); COLOR,URINE Yellow (YELLOW); GLUCOSE, URINE (UA) Negative (NEGATIVE); KETONES,URINE Negative (NEGATIVE); LEUKOCYTE ESTERASE ,URINE Large (NEGATIVE); NITRATE,URINE Negative (NEGATIVE); OCCULT BLOOD,URINE Large (NEGATIVE); PH,URINE 5.5 (5.0-8.0); PROTEIN,URINE Trace mg/dL (NEGATIVE)
[2019-12-18] MEDS: LACTATED RINGERS 1000ML 1,000 ML IV SCH ×2 (00:41→05:13)
[2019-12-18 00:53] LABS: BACTERIA,URINE Moderate /HPF (None Seen); MUCUS,URINE Moderate LPF (None Seen); SQUAMOUS EPITHELIAL CELL,UR Few /HPF (0-2); TRANSITIONAL EPI CELLS,URINE Few /HPF (None Seen)
--- NOTE | 2019-12-18 01:18 | NUR ---
PATIENT ARRIVED FROM ER, DX PERIRECTAL ABSCESS. PT IS AAOX3, NO ACUTE DISTRESS NOTED AT THIS TIME. S/P I&D AT ER. AREA LEFT WITH PACKING. PT STATES SHE HAD A COLONOSCOPY ON 12/12/[address] BREEN AND SINCE THEN HAS FELT THE DISCOMFORT. PT REPORTED TO THE ER WITH C/O FEVER AND DIZZINESS. PT IS TO HAVE CONSULTS WITH DR. VÁZQUEZ AND KINZA CHOWDHURY IN AM. POC DISCUSSED WITH PATIENT. INSTRUCTED TO CALL FOR ASSISTANCE IF NEEDED. VOICED UNDERSTANDING. CALL [facility] PLACED WITHIN REACH, WILL CONT TO MONITOR CLOSELY. TELE WITH SR 86.
[2019-12-18] MEDS ORDERED: VANCOMYCIN 2 GM in SODIUM CHLORIDE 0.9% 500ML 500 ML IV SCH (05:00)
[2019-12-18] MEDS: METRONIDAZOLE 500MG/100ML BAG 100 ML IV SCH ×3 (05:37→23:09)
[2019-12-18 06:12] LABS: BASOPHILS % (AUTO) 0.3 % (0.0-5.0); HEMATOCRIT 34.4 % (36-48); LYMPHOCYTES % (AUTO) 13.1 % (21.0-51.0); MEAN CORPUSCULAR HEMOGLOBIN 27.2 pg (27.0-33.0); MEAN CORPUSCULAR HGB CONC 32.8 g/dL (32.0-36.0); MEAN CORPUSCULAR VOLUME 82.9 fL (79-99); MONOCYTES % (AUTO) 11.8 % (3.0-13.0); PLATELET COUNT (AUTO) 237 K/uL (130-400); RED BLOOD CELL COUNT(AUTO) 4.15 MIL/uL (4.00-5.50); RED CELL DISTRIBUTION WIDTH 13.3 % (11.0-15.5); WHITE BLOOD COUNT (AUTO) 12.5 K/uL (4.8-10.8)
[2019-12-18] MEDS ORDERED: COMPOUND IV REFRIGERATED 1 EACH IVSOLN MISC PRN (06:45)
[2019-12-18 06:52] LABS: ALANINE AMINOTRANSFERASE 10 U/L (12-78); ALBUMIN 2.4 g/dL (3.5-5.0); ASPARTATE AMINOTRANSFERASE 15 U/L (10-37); BILIRUBIN,TOTAL 0.5 mg/dL (0.2-1.0); CARBON DIOXIDE 30 mmol/L (21-32); CHLORIDE 100 mmol/L (101-111); CREATININE 0.8 mg/dL (0.5-1.5); DIGOXIN < 0.20 ng/mL (0.50-2.00); GLOMERULAR FILTR. RATE CALC 78 mL/min (>60); GLUCOSE,RANDOM 94 mg/dL (70-105); PHOSPHORUS 3.1 mg/dL (2.5-4.9); POTASSIUM 3.6 mmol/L (3.5-5.1); SODIUM SERUM 137 mmol/L (136-145); UREA NITROGEN, BLOOD 11 mg/dL (7-18)
[2019-12-18 07:33] LABS: CHOLESTEROL 109 mg/dL (<200); HDL CHOLESTEROL 64 mg/dL (35-85); LDL DIRECT 72 mg/dL (0-99); TRIGLYCERIDES 107 mg/dL (30-200)
[2019-12-18 07:48] LABS: HEMOGLOBIN A1C 6.2 % (4.0-6.0)
[2019-12-18] MEDS ORDERED: MAG HYDROX/AL HYDROX/SIMETH 30 ML, LIDOCAINE HCL 2% VISCOUS 30 ML, DIPHENHYDRAMINE HCL ... PO PRN ×3 (08:30)
[2019-12-18] MEDS: VANCOMYCIN 1.25 GM in SODIUM CHLORIDE 0.9% 250 ML IV SCH ×2 (09:34→21:00)
[2019-12-18] MEDS: ATORVASTATIN CALCIUM 40 MG TABLET PO SCH (09:34)
[2019-12-18] MEDS: BENAZEPRIL HCL 10 MG TABLET PO SCH (09:35)
[2019-12-18] MEDS: FAMOTIDINE/PF 20 MG/2 ML VIAL IV SCH ×2 (09:35→23:08)
[2019-12-18] MEDS: LEVOTHYROXINE 75 MCG TABLET PO SCH (09:35)
[2019-12-18] MEDS: MORPHINE SULFATE 2 MG/ML 1ML SYG IV PRN (09:54)
[2019-12-18] MEDS: CEFEPIME HCL 2 GM VIAL IVP SCH ×2 (12:27→23:09)
[2019-12-18] MEDS ORDERED: METF-444 PO (15:23)
--- NOTE | 2019-12-18 15:49 | NUR ---
DR KINZA LUCAS HERE TO SEE PATIENT; HE SPOKE TO DR ECHOLS AND NO FURTHER SURGICAL INTERVENTION AT THIS TIME BUT TO DO SITZ BATH'S TID AND CHANGE PACKING AFTER EACH BATH; I HAVE CALLED HELP DESK REP ANGELINA CROSS FROM [facility] AND INFORMED HER OF ORDER'S AND RECEIVED ORDER FOR SLIDING SCALE INSULIN COVERAGE.
[2019-12-18] MEDS: INSULIN HUMULIN R 100 UNIT/ML 3ML SQ SCH ×2 (16:30→21:00)
--- NOTE | 2019-12-18 17:07 | NUR ---
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 IF NEEDS HOME HEALT, GRAND DAUGHTER WILL HELP WITH DRESSING CHANGES. DCP HOME [facility] FOR [facility] AB[facility] AND DSGS. WILL FOLLOW. Addendum: 12/18/19 at 1714 by LIZZY RHODES RN CM Amended: Links added.
[2019-12-18] MEDS: BISACODYL 5 MG TABLET.DR PO SCH (23:07)
[2019-12-18] MEDS: ACETAMINOPHEN 325 MG TAB PO PRN (23:08)
[2019-12-18] MEDS: AMLODIPINE BESYLATE 5 MG TAB PO SCH (23:08)
[2019-12-19 03:45] VITALS: BP 131/74
[2019-12-19 05:07] LABS: BASOPHILS % (AUTO) 0.8 % (0.0-5.0); EOSINOPHILS % (AUTO) 3.8 % (0.0-8.0); HEMATOCRIT 34.5 % (36-48); LYMPHOCYTES % (AUTO) 26.4 % (21.0-51.0); MEAN CORPUSCULAR HEMOGLOBIN 27.3 pg (27.0-33.0); MEAN CORPUSCULAR HGB CONC 32.2 g/dL (32.0-36.0); MEAN CORPUSCULAR VOLUME 84.8 fL (79-99); MONOCYTES % (AUTO) 10.6 % (3.0-13.0); NEUTROPHILS % (AUTO) 55.6 % (40.0-77.0); PLATELET COUNT (AUTO) 174 K/uL (130-400); RED BLOOD CELL COUNT(AUTO) 4.07 MIL/uL (4.00-5.50); RED CELL DISTRIBUTION WIDTH 13.6 % (11.0-15.5); WHITE BLOOD COUNT (AUTO) 7.6 K/uL (4.8-10.8)
[2019-12-19 05:29] LABS: CREATININE 0.7 mg/dL (0.5-1.5); PHOSPHORUS 3.1 mg/dL (2.5-4.9); POTASSIUM 3.8 mmol/L (3.5-5.1)
--- NOTE | 2019-12-19 05:30 | NUR ---
pt refused picture taken for progess
[2019-12-19] MEDS: METRONIDAZOLE 500MG/100ML BAG 100 ML IV SCH ×3 (05:33→22:10)
[2019-12-19] MEDS: INSULIN HUMULIN R 100 UNIT/ML 3ML SQ SCH ×4 (05:33→21:00)
[2019-12-19 08:42] VITALS: BP 122/74
[2019-12-19] MEDS: VANCOMYCIN 1.25 GM in SODIUM CHLORIDE 0.9% 250 ML IV SCH ×2 (09:00→22:11)
[2019-12-19] MEDS ORDERED: ALBUTEROL INHALER 90MCG/INH IH PRN (10:15)
[2019-12-19] MEDS: BENAZEPRIL HCL 10 MG TABLET PO SCH (11:07)
[2019-12-19] MEDS: LEVOTHYROXINE 75 MCG TABLET PO SCH (11:08)
[2019-12-19] MEDS: FAMOTIDINE/PF 20 MG/2 ML VIAL IV SCH ×2 (11:08→22:11)
[2019-12-19] MEDS: ATORVASTATIN CALCIUM 40 MG TABLET PO SCH (11:08)
[2019-12-19] MEDS: CEFEPIME HCL 2 GM VIAL IVP SCH ×2 (11:09→22:09)
[2019-12-19] MEDS: BISACODYL 5 MG TABLET.DR PO SCH ×2 (11:15→21:00)
[2019-12-19] MEDS: MORPHINE SULFATE 2 MG/ML 1ML SYG IV PRN ×2 (11:17→22:10)
[2019-12-19] MEDS: ACETAMINOPHEN 325 MG TAB PO PRN (11:17)
[2019-12-19 11:37] VITALS: BP 143/68
--- NOTE | 2019-12-19 14:17 | NUR ---
wound care performed to pt's left fish rectal abscess: first pt premedicated with morphine, then pt performed sitz bath with nursing assistance to properly clean area, then packing removed and new packing placed into wound; the surrounding skin is red and slightly swollen, no fresh drainage came out of the whole, the surrounding tissue is not as hard as yesterday; coretta jacobson was present and able to see the wound, he stated to pt it looked much better today and he did not beleive she needed surgery at this time; he stated to place wet to dry dressing between the butt cheeks to help protect the opposite cheeks skin which has an area of induration developing on it; pt gordy. proc. well.
--- NOTE | 2019-12-19 16:30 | NUR ---
pt had a bowel movement and got stool on the packing in rectal abscess so the area was cleaned with normal saline and new packing inserted and gauze between butt cheeks to help protect the skin opposite of abscess.
[2019-12-19 16:39] VITALS: BP 132/66
[2019-12-19 20:12] VITALS: BP 114/59
[2019-12-19] MEDS: FLUTICASONE PROPIONATE 50MCG/SPRAY 16 GM BOTTLE NS SCH (21:00)
[2019-12-19] MEDS: AMLODIPINE BESYLATE 5 MG TAB PO SCH (22:10)
[2019-12-19 23:07] LABS: ALBUMIN 2.5 g/dL (3.5-5.0); BILIRUBIN,TOTAL 0.2 mg/dL (0.2-1.0); CREATININE 0.7 mg/dL (0.5-1.5); POTASSIUM 3.8 mmol/L (3.5-5.1)
[2019-12-20 00:12] VITALS: BP 167/74
[2019-12-20 04:12] VITALS: BP 131/64
[2019-12-20 05:47] LABS: BASOPHILS % (AUTO) 0.2 % (0.0-5.0); EOSINOPHILS % (AUTO) 3.5 % (0.0-8.0); HEMATOCRIT 36.9 % (36-48); LYMPHOCYTES % (AUTO) 32.4 % (21.0-51.0); MEAN CORPUSCULAR HEMOGLOBIN 27.4 pg (27.0-33.0); MEAN CORPUSCULAR HGB CONC 32.8 g/dL (32.0-36.0); MEAN CORPUSCULAR VOLUME 83.7 fL (79-99); MONOCYTES % (AUTO) 8.8 % (3.0-13.0); NEUTROPHILS % (AUTO) 53.5 % (40.0-77.0); PLATELET COUNT (AUTO) 297 K/uL (130-400); RED BLOOD CELL COUNT(AUTO) 4.41 MIL/uL (4.00-5.50); RED CELL DISTRIBUTION WIDTH 13.8 % (11.0-15.5); WHITE BLOOD COUNT (AUTO) 8.1 K/uL (4.8-10.8)
[2019-12-20 06:11] LABS: CREATININE 0.7 mg/dL (0.5-1.5); MAGNESIUM 1.9 mg/dL (1.80-2.40); PHOSPHORUS 3.1 mg/dL (2.5-4.9); POTASSIUM 3.8 mmol/L (3.5-5.1)
[2019-12-20] MEDS: METRONIDAZOLE 500MG/100ML BAG 100 ML IV SCH (06:29)
[2019-12-20] MEDS: INSULIN HUMULIN R 100 UNIT/ML 3ML SQ SCH ×4 (06:29→21:00)
[2019-12-20 08:13] VITALS: BP 141/92
[2019-12-20] MEDS: ATORVASTATIN CALCIUM 40 MG TABLET PO SCH (09:00)
[2019-12-20] MEDS: BISACODYL 5 MG TABLET.DR PO SCH ×2 (09:00→21:00)
[2019-12-20] MEDS: **HM** BUPROPION XL 150MG PO SCH (09:00)
[2019-12-20] MEDS: LEVOTHYROXINE 75 MCG TABLET PO SCH (09:00)
[2019-12-20] MEDS: BENAZEPRIL HCL 10 MG TABLET PO SCH (09:00)
[2019-12-20] MEDS: HYDROCHLOROTHIAZIDE 25 MG TABLET PO SCH (09:00)
[2019-12-20] MEDS: DIGOXIN 250 MCG TABLET PO SCH (09:00)
[2019-12-20] MEDS: MONTELUKAST SODIUM 10 MG TAB PO SCH (09:00)
[2019-12-20] MEDS: FAMOTIDINE/PF 20 MG/2 ML VIAL IV SCH ×2 (10:15→23:21)
[2019-12-20] MEDS ORDERED: VANCOMYCIN 1.75 GM in SODIUM CHLORIDE 0.9% 250 ML IV SCH (10:30)
[2019-12-20] MEDS: CEFEPIME HCL 2 GM VIAL IVP SCH (11:08)
[2019-12-20 12:06] VITALS: BP 169/82
[2019-12-20] MEDS: CEFTRIAXONE SODIUM 1 GM IVP SCH (12:42)
[2019-12-20] MEDS: MORPHINE SULFATE 2 MG/ML 1ML SYG IV PRN (14:32)
[2019-12-20] MEDS: FLUTICASONE PROPIONATE 50MCG/SPRAY 16 GM BOTTLE NS SCH ×2 (16:24→21:00)
[2019-12-20 16:30] VITALS: BP 150/74
[2019-12-20 19:29] VITALS: BP 146/56
[2019-12-20] MEDS ORDERED: VANCOMYCIN 1.25 GM in SODIUM CHLORIDE 0.9% 250 ML IV SCH (21:00)
[2019-12-20] MEDS: AMLODIPINE BESYLATE 5 MG TAB PO SCH (23:20)
[2019-12-20] MEDS: MORPHINE SULFATE 4 MG/1ML SYG IV PRN (23:22)
[2019-12-21 00:09] VITALS: BP 125/84
[2019-12-21 03:59] VITALS: BP 138/74
[2019-12-21] MEDS: MORPHINE SULFATE 4 MG/1ML SYG IV PRN (05:58)
[2019-12-21 06:33] LABS: BASOPHILS % (AUTO) 0.3 % (0.0-5.0); EOSINOPHILS % (AUTO) 4.5 % (0.0-8.0); HEMATOCRIT 34.9 % (36-48); LYMPHOCYTES % (AUTO) 41.6 % (21.0-51.0); MEAN CORPUSCULAR HEMOGLOBIN 26.9 pg (27.0-33.0); MEAN CORPUSCULAR HGB CONC 32.4 g/dL (32.0-36.0); MEAN CORPUSCULAR VOLUME 83.1 fL (79-99); MONOCYTES % (AUTO) 10.1 % (3.0-13.0); NEUTROPHILS % (AUTO) 41.9 % (40.0-77.0); PLATELET COUNT (AUTO) 270 K/uL (130-400); RED CELL DISTRIBUTION WIDTH 14.2 % (11.0-15.5); WHITE BLOOD COUNT (AUTO) 6.7 K/uL (4.8-10.8)
[2019-12-21 06:54] LABS: CREATININE 0.6 mg/dL (0.5-1.5); POTASSIUM 3.4 mmol/L (3.5-5.1)
[2019-12-21] MEDS: INSULIN HUMULIN R 100 UNIT/ML 3ML SQ SCH ×3 (07:30→16:30)
[2019-12-21 08:28] VITALS: BP 144/78
[2019-12-21] MEDS: DIGOXIN 250 MCG TABLET PO SCH ×2 (09:00→10:51)
[2019-12-21] MEDS: FLUTICASONE PROPIONATE 50MCG/SPRAY 16 GM BOTTLE NS SCH (09:00)
[2019-12-21] MEDS: **HM** BUPROPION XL 150MG PO SCH (09:00)
[2019-12-21 10:43] VITALS: BP 122/81
[2019-12-21] MEDS: FAMOTIDINE/PF 20 MG/2 ML VIAL IV SCH (10:49)
[2019-12-21] MEDS: MONTELUKAST SODIUM 10 MG TAB PO SCH (10:49)
[2019-12-21] MEDS: BENAZEPRIL HCL 10 MG TABLET PO SCH (10:49)
[2019-12-21] MEDS: ACETAMINOPHEN 325 MG TAB PO PRN (10:49)
[2019-12-21] MEDS: BISACODYL 5 MG TABLET.DR PO SCH (10:49)
[2019-12-21] MEDS: ATORVASTATIN CALCIUM 40 MG TABLET PO SCH (10:49)
[2019-12-21] MEDS: HYDROCHLOROTHIAZIDE 25 MG TABLET PO SCH (10:50)
[2019-12-21] MEDS: LEVOTHYROXINE 75 MCG TABLET PO SCH (10:50)
[2019-12-21] MEDS ORDERED: POTASSIUM CHLORIDE 20 MEQ ERTAB PO SCH (13:45)
[2019-12-21] MEDS ORDERED: ACET1TAB25 PO ×2 (15:39→15:41)
[2019-12-21] MEDS ORDERED: ACETAMINOPHEN-CODEINE 300/30MG TAB ONE (15:53)
[2019-12-21] MEDS ORDERED: POTASSIUM CHLORIDE 20 MEQ ERTAB PO ONE (15:55)
[2019-12-21] MEDS ORDERED: ACETAMINOPHEN-CODEINE 300/30MG TAB PO PRN (16:00)
[2019-12-21 16:24] VITALS: BP 126/72
[2019-12-21] MEDS: CEFTRIAXONE SODIUM 1 GM IVP SCH (17:40)
--- NOTE | 2019-12-21 18:00 | NUR ---
REPORT GIVEN TO [facility] NUR[facility]
== END 2019-12-21 19:50 | disposition home health service (06) | DRG 710 ==
LOC: EDH 19:53 → EDHIP 19:54 → 3AH 12-18 00:01
PROVIDERS: ADMIT Internal Medicine; ATTEND Internal Medicine
PROC: 0D9Q0ZZ Drainage of Anus, Open Approach (ICD-10-PCS; principal; 2019-12-17)
DX: A41.9 Sepsis, unspecified organism (principal); K61.0 Anal abscess; E87.1 Hypo-osmolality and hyponatremia; E66.01 Morbid (severe) obesity due to excess calories; B96.20 Unspecified Escherichia coli [E. coli] as the cause of diseases classified elsewhere; E11.9 Type 2 diabetes mellitus without complications; E89.0 Postprocedural hypothyroidism; I10 Essential (primary) hypertension; J45.909 Unspecified asthma, uncomplicated; K61.1 Rectal abscess; N39.0 Urinary tract infection, site not specified; Z82.49 Family history of ischemic heart disease and other diseases of the circulatory system; Z82.5 Family history of asthma and other chronic lower respiratory diseases; Z83.3 Family history of diabetes mellitus; Z90.710 Acquired absence of both cervix and uterus; L02.91 Cutaneous abscess, unspecified; Z68.41 Body mass index [BMI] 40.0-44.9, adult
CPT/HCPCS: 36415; 72192; 80048; 80053; 80061; 80162; 80202; 81001; 82550; 82948; 83036; 83605; 83735; 83874; 84100; 84145; 84484; 85025; 85610; 85730; 86900; 86901; 87040; 87070; 87076; 87077; 87088; 87186; 93005; G0378; J0692; J0696; J2270; J2405; J2543; J3370; J3490; J7040; J7050; J7120

== ENCOUNTER 2023-03-08 08:13 | Emergency (ER) | payer MEDICAID ==
[~2023-03-08] VITALS: Ht 172.7 cm; Wt 108.4 kg
[~2023-03-08 08:13] MED LIST changes: +AMLO-257 PO; -AMLO5TAB9 PO; -BENA40TA9 PO; +BENA40TA92 PO; -BUDE180H IH; -BUPR-47 PO; +BUPR-49 PO; -INSLAN SQ; -INSU100V3 SQ; -LEVO750T21 PO; +METF-444 PO; +MONT-39 PO; -MONT10TA26 PO
[2023-03-08] MEDS ORDERED: DiphenhydrAMINE HCL 50 MG/ML VIAL IV ONE (09:00)
[2023-03-08] MEDS ORDERED: 0.9%NACL 1000ML 1,000 ML IV ONE (09:00)
[2023-03-08 09:12] LABS: BASOPHILS # (AUTO) 0.06 K/uL (0.00-0.20); BASOPHILS % (AUTO) 0.7 % (0.0-5.0); EOSINOPHILS # (AUTO) 0.21 K/uL (0.00-0.70); EOSINOPHILS % (AUTO) 2.3 % (0.0-8.0); HEMATOCRIT 38.1 % (36-48); IMMATURE GRANULOCYTE ABSOLUTE 0.02 K/uL (0-1); LYMPHOCYTES # (AUTO) 2.6 K/uL (1.0-4.8); LYMPHOCYTES % (AUTO) 28.1 % (21.0-51.0); MEAN CORPUSCULAR HEMOGLOBIN 28.3 pg (27.0-33.0); MEAN CORPUSCULAR HGB CONC 33.1 g/dL (32.0-36.0); MEAN CORPUSCULAR VOLUME 85.6 fL (79-99); MONOCYTES # (AUTO) 0.8 K/uL (0.1-1.0); MONOCYTES % (AUTO) 8.5 % (3.0-13.0); NEUTROPHILS # (AUTO) 5.6 K/uL (1.8-7.7); NEUTROPHILS % (AUTO) 60.2 % (40.0-77.0); PLATELET COUNT (AUTO) 204 K/uL (130-400); RED BLOOD CELL COUNT(AUTO) 4.45 MIL/uL (4.00-5.50); RED CELL DISTRIBUTION WIDTH 14.9 % (11.0-15.5); WHITE BLOOD COUNT (AUTO) 9.2 K/uL (4.8-10.8)
[2023-03-08 09:32] LABS: ALBUMIN 3.2 g/dL (3.5-5.0); BILIRUBIN,TOTAL 1.2 mg/dL (0.2-1.0); CREATININE 0.8 mg/dL (0.5-1.5); POTASSIUM 3.8 mmol/L (3.5-5.1); TOTAL PROTEIN, SERUM 6.3 g/dL (6.0-8.3)
[2023-03-08] MEDS ORDERED: SOLU-MEDROL 125MG VIAL IVP ONE (10:30)
[2023-03-08] MEDS ORDERED: PRED20TA3 PO (11:18)
[2023-03-08 11:34] VITALS: BP 159/71; PULSE 80; RESP 18; O2SAT 98
== END 2023-03-08 11:35 | disposition home or self-care (01) ==
LOC: EDH 08:13
DX: L27.0 Generalized skin eruption due to drugs and medicaments taken internally (principal); T50.905A Adverse effect of unspecified drugs, medicaments and biological substances, initial encounter; E66.9 Obesity, unspecified; E11.9 Type 2 diabetes mellitus without complications; I10 Essential (primary) hypertension; Z79.84 Long term (current) use of oral hypoglycemic drugs; Z79.899 Other long term (current) drug therapy; Z98.890 Other specified postprocedural states; Y92.89 Other specified places as the place of occurrence of the external cause
CPT/HCPCS: 99284; 96374; 96361; 96375; 80053; 85025; 83605; 86140; 36415; 93005; 84145; J1200; J2930